=== PATIENT | female | born 1995 | race African-American/Black ===

== ENCOUNTER 2016-10-08 06:42 | Emergency (ER) | payer SELFPAY ==
[2016-10-08] MEDS ORDERED: Ibuprofen 200 MG TAB ONE (08:09)
[2016-10-08] MEDS ORDERED: traMADol HCl 50 MG TAB ONE (08:09)
--- NOTE | 2016-10-08 08:37 | RAD ---
RIGHT HAND THREE VIEWS: History: Trauma to hand. There is no signs of fracture or dislocation. IMPRESSION: Negative right hand. POS: OFF
--- NOTE | 2016-10-08 09:12 | ERRECORD ---
[facility] EMERGENCY RECORD HPI HAND (08:04 RW) CHIEF COMPLAINT: Patient presents for evaluation of injury, to the right hand. HISTORIAN: History provided by patient, crushed right thumb in car door this am. MECHANISM OF INJURY: Known mechanism, Mechanism of injury: Blunt trauma, by direct blow. LOCATION: Symptoms are localized, most severe in the first finger. SEVERITY: Maximum severity of symptoms mild, Currently symptoms are mild, Maximum severity of pain rated as 6/10, Current severity of pain rated as 6/10. TIME COURSE: Sudden onset of symptoms, just prior to arrival, There has been no change in the patient's symptoms over time. ASSOCIATED WITH: No associated symptoms. EXACERBATED BY: Patient's condition exacerbated by nothing. RELIEVED BY: Patient's condition relieved by nothing. ROS (08:05 RW) CONSTITUTIONAL: Negative constitutional review of systems. EYES: Negative eye review of systems. ENT: Negative ears, nose, throat review of systems. CARDIOVASCULAR: Negative cardiovascular review of systems. RESPIRATORY: Negative respiratory review of systems. GI: Negative gastrointestinal review of systems. GENITOURINARY FEMALE: Negative genitourinary review of systems. MUSCULOSKELETAL: Historian reports back pain. SKIN: Negative skin review of systems. NEUROLOGIC: Negative neurologic review of systems. ENDOCRINE: Negative endocrine review of systems. HEMO/LYMPHATIC: Normal hematologic/lymphatic system review. ALLERGIC/IMMUNOLOGIC: Normal allergy/immunologic system review. PSYCHIATRIC: Negative psychiatric review of systems. NOTES: All systems reviewed, negative except as described above. PAST MEDICAL HISTORY (07:29 MCBE) MEDICAL HISTORY: No past medical history, Tetanus immunization up to date. FEMALE SURGICAL HISTORY: Patient has no surgical history. PSYCHIATRIC HISTORY: No previous psychiatric history. SOCIAL HISTORY: Patient denies alcohol use, Patient denies drug use, Patient is a former tobacco user, smoked cigarettes. FAMILY HISTORY: Family history is non-contributory to this case. KNOWN ALLERGIES No Known Drug Allergies CURRENT MEDICATIONS (07:27 MCBE) &a-1R&a+25V*p+0X*q4115W*c202B*c15G*c2P*p-0X&a-25V&a+1R Name: Yamila Jennings : 1995 F21 MedRec: [id number] AcctNum: [id number] Prepared: ThuOct 08, 2016 09:15 by Interface Page 1 of 3 pMD [facility] EMERGENCY RECORD None VITAL SIGNS VITAL SIGNS: BP: 123/72, Pulse: 64, Resp: 18, Temp: 98.0 (Oral), Pain: 6, O2 sat: 96 on Room Air, Time: 10/08/2016 07:30. (07:30 MCBE) BP: 128/78, Pulse: 76, Resp: 16, Temp: 98.2 (Oral), Pain: 2, O2 sat: 97 on Room Air, Time: 10/08/2016 08:30. (08:30 MCBE) PHYSICAL EXAM (08:06 RW) CONSTITUTIONAL: Vital Signs Reviewed. HEAD: Head exam normal. EYES: Eye exam normal. ENT: ENT exam normal. NECK: Neck exam normal. RESPIRATORY CHEST: Respiratory and chest exam normal. CARDIOVASCULAR: Cardiovascular assessment normal. ABDOMEN FEMALE: Abdominal exam normal. BACK: Back exam normal. UPPER EXTREMITY: Upper extremity exam included findings of inspection abnormal, abrasions present, contusions present, dorsal aspect right thumb, Radial pulse normal, Ulnar pulse normal, Brachial pulse normal, capillary refill less than 2 seconds, distal motor intact, distal sensory intact. LOWER EXTREMITY: Lower extremity exam normal. NEURO: Neuro exam normal. SKIN: Skin exam normal. LYMPHATIC: Lymphatic exam normal. PSYCHIATRIC: Psychiatric exam normal. MEDICATION ADMINISTRATION SUMMARY Drug Name: Ultram, Dose Ordered: 2 tab(s), Route: Oral, Status: Given, Time: 08:13 10/08/2016, Drug Name: *Motrin, Dose Ordered: 1 tab(s), Route: Oral, Status: Given, Time: :10/08/2016, *Additional information available in notes, Detailed record available in Medication Service section. PROBLEM LIST No recorded problems DIAGNOSIS (08: RW) FINAL: PRIMARY: ABRASION UNSPECIFIED THUMB INITIAL, ADDITIONAL: contusion thumb. PRESCRIPTION (:27 RW) Ultram: TABLET : 50 mg : ORAL : Quantity: 2 Unit: tab(s) Route: ORAL Schedule: every 6 hours PRN Dispense: 20 Unit: tab(s) May substitute. Refills: No Refills . &a-1R&a+25V*p+0X*[id number]*c202B*c15G*c2P*p-0X&a-25V&a+1R Name: Yamila Jennings : 1995 F21 MedRec: [id number] AcctNum: [id number] Prepared: ThuOct 08, 2016 09:15 by Interface Page 2 of 3 pMD [facility] EMERGENCY RECORD NOTES: No Refills. DISPOSITION PATIENT: Disposition Type: Discharge, Disposition: *Discharge Home, Disposition Transport: Car, Condition: Improved. (08:28 RWAG) Patient left the department. (09:00 HENRRY) Hassan: MCTRINIDAD=ALEJO Fall, Carli RWAG=MD Candido, Compa &a-1R&a+25V*p+0X*[id number]*c202B*c15G*c2P*p-0X&a-25V&a+1R Name: Yamila Jennings : 1995 F21 MedRec: [id number] AcctNum: [id number] Prepared: ThuOct 08, 2016 09:15 by Interface Page 3 of 3 pMD MTDD
--- NOTE | 2016-10-08 09:13 | PICIS ---
[facility] EMERGENCY RECORD TRIAGE (07:27 MCBE) TRIAGE NOTES: patient cut right thumb on car door this am. (07:27 MCBE) PATIENT: NAME: Yamila Jennings, AGE: 21, GENDER: female, : Sun 1995, TIME OF GREET: ThuOct 08, 2016 06:43, PREFERRED LANGUAGE: Icelandic, ETHNICITY: Not or , ECODE BILLING MAP: [facility] ER, SSN: [id number], Zip Code: [address], KG WEIGHT: 71.21, PHONE: , , , PERSON ID: [id number]. (07:27 MCBE) COMPLAINT: CUT ON HAND. (07:27 MCBE) ADMISSION: URGENCY: 4 Non Urgent, ADMISSION SOURCE: Home, TRANSPORT: CAR, BED: ER -04. (07:27 MCBE) ASSESSMENT: Assessment: patient came to er with finger wrapped in towel. bleeding controlled at this time. (07:29 MCBE) IMMUNIZATIONS: Flu vaccine not up to date, Tetanus immunization up to date. (07:29 MCBE) SIRS SCORING: Heart Rate 55-109 (0), Temp range 96.8-101.1 (0), respiratory rate 12-24 (0), Mental Status altered: no (0), Infection or Suspected Infection: No. (07:29 MCBE) TRIAGE SCREENING: Patient denies suicidal ideation, Patient denies presence of domestic violence. (07:29 MCBE) PROVIDERS: TRIAGE NURSE: Carli Fall RN. (07:27 MCBE) PREVIOUS VISIT ALLERGIES: No Known Drug Allergies. (07:27 MCBE) No Known Drug Allergies. (07:29 MCBE) KNOWN ALLERGIES No Known Drug Allergies CURRENT MEDICATIONS (07:27 MCBE) None VITAL SIGNS VITAL SIGNS: BP: 123/72, Pulse: 64, Resp: 18, Temp: 98.0 (Oral), Pain: 6, O2 sat: 96 on Room Air, Time: 10/08/2016 07:30. (07:30 MCBE) BP: 128/78, Pulse: 76, Resp: 16, Temp: 98.2 (Oral), Pain: 2, O2 sat: 97 on Room Air, Time: 10/08/2016 08:30. (08:30 MCBE) NURSING ASSESSMENT: EXTREMITY UPPER (08:14 MCBE) CONSTITUTIONAL: Complex assessment performed, Patient arrives ambulatory, Gait steady, History obtained from patient, Patient appears comfortable, Patient cooperative, Patient alert, Oriented to person, place and time, Skin warm, Skin dry, Skin normal in color, Mucous membranes pink, Mucous membranes moist, Patient is well-groomed, Patient complains of CUT ON RIGHT THUMB. LEFT UPPER EXTREMITY: Left upper extremity assessment findings include capillary refill less than 2 seconds, Skin color normal to hand, Skin temperature to hand warm, Distal sensation intact, Muscle tone normal, Inspection findings include: No pressure ulcer to the shoulder, Inspection findings include no pressure ulcer to the elbow, &a-1R&a+25V*p+0X*e1080A*c202B*c15G*c2P*p-0X&a-25V&a+1R Name: Yamila Jennings : 1995 F21 MedRec: [id number] AcctNum: [id number] Prepared: ThuOct 08, 2016 09:15 by Interface Page [address] [facility] EMERGENCY RECORD Inspection findings include no pressure ulcer. RIGHT UPPER EXTREMITY: Right upper extremity assessment findings include capillary refill less than 2 seconds, Skin color normal to hand, Skin temperature to hand warm, Distal sensation intact, Muscle tone normal, Inspection findings include abrasion, to RIGHT THUMB, Inspection findings include: No pressure ulcer to the shoulder, Inspection findings include no pressure ulcer to the elbow, Inspection findings include no pressure ulcer. NURSING PROCEDURE: BEDSIDE RADIOLOGY (08:18 BE) PATIENT IDENTIFIER: Patient actively involved in identification process, Patient's identity verified by patient stating name, Patient's identity verified by patient stating date, Patient's identity verified by hospital ID bracelet. BEDSIDE RADIOLOGY: Portable x-ray performed, of the right hand. NURSING PROCEDURE: DISCHARGE NOTE (08:48 MCBE) DISCHARGE: Patient discharged to home, ambulating without assistance, friend driving, accompanied by friend, Summary of Care printed/ provided, Simple or moderate discharge teaching performed, by CARLI DHILLON, EXPLAINED DISCHARGE INSTRUCTIONS, Prescriptions given and instructions on side effects given, Name of prescription(s) given: TRAMADOL, Above person(s) verbalized understanding of discharge instructions and follow-up care, Patient treated and evaluated by physician, Notes: FRIEND SIGHNED PATIENT OUT. BELONGINGS: Belongings and valuables with patient upon arrival to the Emergency Department include:, Belongings and valuables with patient at time of discharge include:, jacket, pants, shirt, shoes, cellular phone, keys, purse, Belongings remain with patient, Valuables remain with patient. NURSING PROCEDURE: DRESSING (08:30 [facility]) PATIENT IDENTIFIER: Patient actively involved in identification process, Patient's identity verified by patient stating name, Patient's identity verified by patient stating date, Patient's identity verified by hospital ID bracelet. DRESSING: Dressing indicated to promote wound healing, Dressing indicated to prevent wound complications, Simple dressing, applied, No drainage present, no drainage from site, to RIGHT THUMB, Applied bandaid, Last tetanus shot received less than 5 years ago. ORDER DETAILS Order Name: XR Hand Rt 3 View STANDARD, Status: Active, Time: 07:58 10/08/2016, User: [facility], - Ordered for: MD Rey Richard, - Entered by: MD Rey Richard - ThuOct 08, 2016 07:58, - Quantity: 1. &a-1R&a+25V*p+0X*[id number]*c202B*c15G*c2P*p-0X&a-25V&a+1R Name: Yamila Jennings : 1995 F21 MedRec: [id number] AcctNum: [id number] Prepared: ThuOct 08, 2016 09:15 by Interface Page [address] [facility] EMERGENCY RECORD MEDICATION ADMINISTRATION SUMMARY Drug Name: Ultram, Dose Ordered: 2 tab(s), Route: Oral, Status: Given, Time: 08:13 10/08/2016, Drug Name: *Motrin, Dose Ordered: 1 tab(s), Route: Oral, Status: Given, Time: 08:13 10/08/2016, *Additional information available in notes, Detailed record available in Medication Service section. MEDICATION SERVICE (08: [facility]) Motrin: Order: Motrin (ibuprofen) - Dose: 1 tab(s) : Oral Schedule: Now Notes: 600mg Ordered by: Compa Rey MD Entered by: Compa Rey MD ThuOct 08, 2016 07:59 , Acknowledged by: Carli Fall RN ThuOct 08, 2016 08:07 Documented as given by: Carli Fall RN ThuOct 08, 2016 08:13 Patient, Medication, Dose, Route and Time verified prior to administration. Amount given: 600MG, Site: Medication administered P.O., Patient appears Awake and alert- acceptable, Correct patient, time, route, dose and medication confirmed prior to administration, Patient advised of actions and side-effects prior to administration, Allergies confirmed and medications reviewed prior to administration, Patient in position of comfort, Side rails up, Cart in lowest position, Call light in reach. Ultram: Order: Ultram (tramadol HCl) - Dose: 2 tab(s) : Oral Schedule: Now Ordered by: Compa Rey MD Entered by: Cmopa Rey MD ThuOct 08, 2016 07:59 , Acknowledged by: Carli Fall RN ThuOct 08, 2016 08:08 Documented as given by: Carli Fall RN ThuOct 08, 2016 08:13 Patient, Medication, Dose, Route and Time verified prior to administration. Amount given: 2 TABS, Site: Medication administered P.O., Patient appears Awake and alert- acceptable, Correct patient, time, route, dose and medication confirmed prior to administration, Patient advised of actions and side-effects prior to administration, Allergies confirmed and medications reviewed prior to administration, Patient in position of comfort, Side rails up, Cart in lowest position, Family at bedside, Call light in reach. HPI HAND (08:04 [facility]) CHIEF COMPLAINT: Patient presents for evaluation of injury, to the right hand. HISTORIAN: History provided by patient, crushed right thumb in car door this am. MECHANISM OF INJURY: Known mechanism, &a-1R&a+25V*p+0X*i5010O*c202B*c15G*c2P*p-0X&a-25V&a+1R Name: Yamila Jennings : 1995 F21 MedRec: [id number] AcctNum: [id number] Prepared: ThuOct 08, 2016 09:15 by Interface Page 3 of 6 pMD [facility] EMERGENCY RECORD Mechanism of injury: Blunt trauma, by direct blow. LOCATION: Symptoms are localized, most severe in the first finger. SEVERITY: Maximum severity of symptoms mild, Currently symptoms are mild, Maximum severity of pain rated as 6/10, Current severity of pain rated as 6/10. TIME COURSE: Sudden onset of symptoms, just prior to arrival, There has been no change in the patient's symptoms over time. ASSOCIATED WITH: No associated symptoms. EXACERBATED BY: Patient's condition exacerbated by nothing. RELIEVED BY: Patient's condition relieved by nothing. ROS (08:05 [facility]) CONSTITUTIONAL: Negative constitutional review of systems. EYES: Negative eye review of systems. ENT: Negative ears, nose, throat review of systems. CARDIOVASCULAR: Negative cardiovascular review of systems. RESPIRATORY: Negative respiratory review of systems. GI: Negative gastrointestinal review of systems. GENITOURINARY FEMALE: Negative genitourinary review of systems. MUSCULOSKELETAL: Historian reports back pain. SKIN: Negative skin review of systems. NEUROLOGIC: Negative neurologic review of systems. ENDOCRINE: Negative endocrine review of systems. HEMO/LYMPHATIC: Normal hematologic/lymphatic system review. ALLERGIC/IMMUNOLOGIC: Normal allergy/immunologic system review. PSYCHIATRIC: Negative psychiatric review of systems. NOTES: All systems reviewed, negative except as described above. PAST MEDICAL HISTORY (07:29 [facility]) MEDICAL HISTORY: No past medical history, Tetanus immunization up to date. FEMALE SURGICAL HISTORY: Patient has no surgical history. PSYCHIATRIC HISTORY: No previous psychiatric history. SOCIAL HISTORY: Patient denies alcohol use, Patient denies drug use, Patient is a former tobacco user, smoked cigarettes. FAMILY HISTORY: Family history is non-contributory to this case. PHYSICAL EXAM (08:06 [facility]) CONSTITUTIONAL: Vital Signs Reviewed. HEAD: Head exam normal. EYES: Eye exam normal. ENT: ENT exam normal. NECK: Neck exam normal. RESPIRATORY CHEST: Respiratory and chest exam normal. CARDIOVASCULAR: Cardiovascular assessment normal. ABDOMEN FEMALE: Abdominal exam normal. &a-1R&a+25V*p+0X*l1496Z*c202B*c15G*c2P*p-0X&a-25V&a+1R Name: Yamila Jennings : 1995 F21 MedRec: [id number] AcctNum: [id number] Prepared: ThuOct 08, 2016 09:15 by Interface Page [address] [facility] EMERGENCY RECORD BACK: Back exam normal. UPPER EXTREMITY: Upper extremity exam included findings of inspection abnormal, abrasions present, contusions present, dorsal aspect right thumb, Radial pulse normal, Ulnar pulse normal, Brachial pulse normal, capillary refill less than 2 seconds, distal motor intact, distal sensory intact. LOWER EXTREMITY: Lower extremity exam normal. NEURO: Neuro exam normal. SKIN: Skin exam normal. LYMPHATIC: Lymphatic exam normal. PSYCHIATRIC: Psychiatric exam normal. EVENTS TRANSFER: Triage to Emergency Emergency Room -04. (ThuOct 08, 2016 07:27 MCBE) Removed from Emergency Emergency Room -04. (09:00 MCBE) PROBLEM LIST No recorded problems DIAGNOSIS (08:28 RWAG) FINAL: PRIMARY: ABRASION UNSPECIFIED THUMB INITIAL, ADDITIONAL: contusion thumb. DISPOSITION PATIENT: Disposition Type: Discharge, Disposition: *Discharge Home, Disposition Transport: Car, Condition: Improved. (08:28 RWAG) Patient left the department. (09:00 MCBE) INSTRUCTION (08:28 RWAG) DISCHARGE: CRUSH INJURY, HAND/FINGER. FOLLOWUP: Follow up with Primary Care Physician as needed. SPECIAL: Follow-up with your PCP. PRESCRIPTION (08:27 RWAG) Ultram: TABLET : 50 mg : ORAL : Quantity: 2 Unit: tab(s) Route: ORAL Schedule: every 6 hours PRN Dispense: 20 Unit: tab(s) May substitute. Refills: No Refills . NOTES: No Refills. IMAGING *DISCHARGE INSTRUCTIONS RECEIPT: Image captured from scanner. (08:57 MCBE) *SUPPLY CHARGE SHEET: Image captured from scanner. (08:58 MCBE) ADMIN (09:09 RWAG) DIGITAL SIGNATURE: MD Rey Richard. Hassan: &a-1R&a+25V*p+0X*p9243V*c202B*c15G*c2P*p-0X&a-25V&a+1R Name: Yamila Jennings : 1995 F21 MedRec: [id number] AcctNum: [id number] Prepared: ThuOct 08, 2016 09:15 by Interface Page [address] [facility] EMERGENCY RECORD MCBE=ALEJO Fall, Carli RWAG=MD Candido, Compa &a-1R&a+25V*p+0X*[id number]*c202B*c15G*c2P*p-0X&a-25V&a+1R Name: Yamila Jennings : 1995 F21 MedRec: [id number] AcctNum: [id number] Prepared: ThuOct 08, 2016 09:15 by Interface Page [address] [facility] MEDICATION RECONCILIATION You were seen in the Emergency Department on: ThuOct 08, 2016 KNOWN ALLERGIES No Known Drug Allergies MEDICATIONS GIVEN WHILE IN THE EMERGENCY DEPARTMENT Ultram (tramadol HCl) - Dose: 2 tab(s) : Oral Motrin (ibuprofen) - Dose: 1 tab(s) : Oral HOME MEDICATIONS None Notes from the emergency department Reviewed with patient PRESCRIPTIONS (1) &a-1R&a+25V*p+0X*m6297S*c202B*c15G*c2P*p-0X&a-25V&a+1R Name: Yamila Jennings : 1995 F21 MedRec: [id number] AcctNum: [id number] Prepared: ThuOct 08, 2016 09:15 by Interface pMD JERE
== END 2016-10-08 08:47 | disposition home or self-care (01) ==
LOC: NAV ERS 06:42
DX: S60.011A Contusion of right thumb without damage to nail, initial encounter (principal); Z87.891 Personal history of nicotine dependence; W23.0XXA Caught, crushed, jammed, or pinched between moving objects, initial encounter
CPT/HCPCS: 99283

== ENCOUNTER 2016-10-28 03:56 | Emergency (ER) | payer SELFPAY ==
[2016-10-28] MEDS ORDERED: AMOXicillin 250 MG CAP ONE (04:21)
== END 2016-10-28 04:45 | disposition home or self-care (01) ==
LOC: NAV ERS 03:56
DX: K08.89 Other specified disorders of teeth and supporting structures (principal); Z87.891 Personal history of nicotine dependence
CPT/HCPCS: 99282

== ENCOUNTER 2016-10-28 09:03 | Emergency (ER) | payer SELFPAY ==
[2016-10-28] MEDS ORDERED: Ketorolac Tromethamine 60 MG/2 ML VIAL ONE (09:46)
== END 2016-10-28 09:56 | disposition home or self-care (01) ==
LOC: NAV ERS 09:03
DX: K08.89 Other specified disorders of teeth and supporting structures (principal); Z87.891 Personal history of nicotine dependence
CPT/HCPCS: 96372; J1885

== ENCOUNTER 2017-05-17 11:51 | Emergency (ER) | payer OTHER ==
[2017-05-17] MEDS ORDERED: Sodium Chloride 0.9% 1,000 ML ONE (12:38)
[2017-05-17 12:42] LABS: Bilirubin Negative (Negative); Blood, Urine Small (Negative); Clarity SL HAZY (Clear); Glucose, Urine (Dipstick) Negative (Negative); Leukocyte Negative (Negative); Nitrite Negative (Negative); Protein, Urine (Dipstick) Negative (Neg-Trace)
[2017-05-17 12:55] LABS: Bacteria/HPF 2+ HPF (None Seen); Pregnancy Test - Urine (BHCG) Negative (Negative); Pregu Control Background? CLEAR/WHITE (CLR/WHITE); Pregu Control Bar Appear? YES (CONTROL BAR); RBC/HPF 0-3 HPF (0-3); WBC/HPF 0-3 HPF (0-3)
[2017-05-17 13:08] LABS: ALT (SGPT) 14 U/L (8-55); AST (SGOT) 13 U/L (5-34); Albumin 3.6 g/dL (3.5-5.0); Alkaline Phosphatase 71 U/L (40-150); Anion Gap 10 mmol/L (10-20); BUN (Urea Nitrogen) 12 mg/dL (7.0-18.7); Bilirubin, Total 0.3 mg/dL (0.2-1.2); Calc. Creatinine Clearance 0 mL/min (70-130); Calcium 8.8 mg/dL (7.8-10.44); Carbon Dioxide 26 mmol/L (22-29); Chloride 109 mmol/L (98-107); Estimated GFR-MDRD Greater than 90; Globulin 2.8 g/dL (2.4-3.5); Glucose 80 mg/dL (70-105); Lipase 24 U/L (8-78); Potassium 4.1 mmol/L (3.5-5.1); Protein, Total 6.4 g/dL (6.0-8.3); Sodium 141 mmol/L (136-145)
[2017-05-17 13:10] LABS: #Basophils 0.2 thou/uL (0.0-0.2); #Eosinphils 0.1 thou/uL (0.0-0.7); #Lymphocytes 3.3 thou/uL (1.20-3.40); #Monocytes 0.6 thou/uL (0.11-0.59); #Neutrophils 3.5 thou/uL (1.40-6.50); %Eosinophils 1.8 % (0.0-10.0); %Lymphocytes 43.2 % (21.0-51.0); %Monocytes 7.4 % (0.0-10.0); %Neutrophils 45.6 % (42.0-75.0); Hemoglobin 10.4 g/dL (12.0-16.0); Mean Corpuscular HGB CONC 30.4 g/dL (32.0-36.0); Mean Corpuscular Hemoglobin 20.6 pg (27.0-31.0); Mean Corpuscular Volume 67.9 fl (81.0-99.0); Mean Platelet Volume 7.2 fL (7.4-10.4); Platelet Count 198 thou/uL (130-400); RBC Distribution Width 13.6 % (11.5-14.5); Red Blood Cell (RBC) Count 5.03 mill/uL (4.20-5.40); White Blood Cell (WBC) Count 7.7 thou/uL (4.8-10.8)
== END 2017-05-17 13:30 | disposition home or self-care (01) ==
LOC: NAV ERS 11:51
DX: K52.1 Toxic gastroenteritis and colitis (principal); T36.3X5A Adverse effect of macrolides, initial encounter; F17.210 Nicotine dependence, cigarettes, uncomplicated
CPT/HCPCS: 80053; 81003; 81015; 81025; 83690; 85025; 96360; J7050

== ENCOUNTER 2018-02-16 13:01 | Emergency (ER) | payer SELFPAY ==
[2018-02-16] MEDS ORDERED: Dicyclomine 20 MG TAB ONE (13:18)
[2018-02-16] MEDS ORDERED: Ondansetron ODT 4 MG TAB ONE (13:18)
[2018-02-16 13:33] LABS: Pregnancy Test - Urine (BHCG) POSITIVE (Negative)
[2018-02-16 13:34] LABS: Pregu Control Background? CLEAR/WHITE (CLR/WHITE); Pregu Control Bar Appear? YES (CONTROL BAR)
== END 2018-02-16 13:43 | disposition home or self-care (01) ==
LOC: NAV ERS 13:01
DX: O99.611 Diseases of the digestive system complicating pregnancy, first trimester (principal); K52.9 Noninfective gastroenteritis and colitis, unspecified; O99.331 Smoking (tobacco) complicating pregnancy, first trimester; F17.210 Nicotine dependence, cigarettes, uncomplicated; Z71.6 Tobacco abuse counseling
CPT/HCPCS: 81025; 99284; Q0162

== ENCOUNTER 2018-05-19 15:49 | Emergency (ER) | payer MEDICAID, OTHER | END 2018-05-19 16:22 | disposition home or self-care (01) | LOC: NAV ERS 15:49 | DX: O21.9 Vomiting of pregnancy, unspecified (principal); Z87.891 Personal history of nicotine dependence; Z3A.18 18 weeks gestation of pregnancy | CPT/HCPCS: 99283 ==

== ENCOUNTER 2018-06-04 21:09 | Emergency (ER) | payer OTHER | END 2018-06-04 22:13 | disposition home or self-care (01) | LOC: NAV ERS 21:09 | DX: O99.89 Other specified diseases and conditions complicating pregnancy, childbirth and the puerperium (principal); Z87.891 Personal history of nicotine dependence; Z79.899 Other long term (current) drug therapy; Z3A.20 20 weeks gestation of pregnancy | CPT/HCPCS: 99283 ==

== ENCOUNTER 2020-08-06 14:28 | Emergency (ER) | payer OTHER, SELFPAY ==
[2020-08-06 15:30] LABS: Bilirubin Negative (Negative); Blood, Urine Negative (Negative); Clarity Clear (Clear); Glucose, Urine (Dipstick) Negative (Negative); Ketone, Urine Negative (Negative); Leukocyte Negative (Negative); Nitrite Negative (Negative); Protein, Urine (Dipstick) Negative (Neg-Trace); Urobilinogen 0.2 mg/dL (Less than 2)
[2020-08-06 15:32] LABS: #Basophils 0.1 thou/uL (0.0-0.2); #Eosinphils 0.1 thou/uL (0.0-0.7); #Lymphocytes 3.3 thou/uL (1.20-3.40); #Monocytes 0.6 thou/uL (0.11-0.59); #Neutrophils 4.9 thou/uL (1.40-6.50); %Basophils 1.2 % (0.0-1.0); %Eosinophils 1.2 % (0.0-10.0); %Lymphocytes 37.1 % (21.0-51.0); %Monocytes 6.4 % (0.0-10.0); %Neutrophils 54.2 % (42.0-75.0); Hemoglobin 10.9 g/dL (12.0-16.0); Mean Corpuscular HGB CONC 29.7 g/dL (32.0-36.0); Mean Corpuscular Hemoglobin 20.7 pg (27.0-31.0); Mean Corpuscular Volume 69.9 fL (78.0-98.0); Mean Platelet Volume 6.6 fL (7.4-10.4); Platelet Count 235 thou/uL (130-400); RBC Distribution Width 13.3 % (11.5-14.5); Red Blood Cell (RBC) Count 5.23 mill/uL (4.20-5.40)
[2020-08-06 15:43] LABS: ALT (SGPT) 16 U/L (8-55); AST (SGOT) 13 U/L (5-34); Albumin 3.7 g/dL (3.5-5.0); Alkaline Phosphatase 68 U/L (40-110); Anion Gap 12 mmol/L (10-20); BUN (Urea Nitrogen) 13 mg/dL (7.0-18.7); Bilirubin, Total 0.2 mg/dL (0.2-1.2); Calc. Creatinine Clearance 0 mL/min (70-130); Calcium 8.4 mg/dL (7.8-10.44); Carbon Dioxide 24 mmol/L (22-29); Chloride 104 mmol/L (98-107); Globulin 2.8 g/dL (2.4-3.5); Glucose 93 mg/dL (70-105); Potassium 3.6 mmol/L (3.5-5.1); Protein, Total 6.5 g/dL (6.0-8.3); Sodium 136 mmol/L (136-145)
== END 2020-08-06 17:26 | disposition short-term general hospital (02) ==
LOC: NAV ERS 14:28
DX: O99.891 Other specified diseases and conditions complicating pregnancy (principal); R10.32 Left lower quadrant pain; O99.331 Smoking (tobacco) complicating pregnancy, first trimester; F17.200 Nicotine dependence, unspecified, uncomplicated; Z3A.01 Less than 8 weeks gestation of pregnancy; Z79.899 Other long term (current) drug therapy
CPT/HCPCS: 80053; 81003; 84702; 85025; 99284

== ENCOUNTER 2022-05-04 02:10 | Emergency (ER) | payer OTHER, SELFPAY ==
[2022-05-04] MEDS ORDERED: Sulfameth/Trimethoprim DS 800-160mg TAB ONE (02:58)
[2022-05-04] MEDS ORDERED: Ketorolac Tromethamine 30 MG/ML VIAL ONE (02:58)
[2022-05-04] MEDS ORDERED: Cephalexin 250 MG CAP ONE (02:58)
== END 2022-05-04 03:28 | disposition home or self-care (01) ==
LOC: NAV ERS 02:10
DX: L03.012 Cellulitis of left finger (principal)
CPT/HCPCS: 96372; 99283; J1885

== ENCOUNTER 2022-05-06 12:15 | Emergency (ER) | payer MEDICAID, OTHER, SELFPAY ==
[2022-05-06] MEDS ORDERED: Lidocaine 1% (PF) 30 ML VIAL ONE (13:01)
[2022-05-06] MEDS ORDERED: Ibuprofen 800 MG TAB ONE (13:17)
== END 2022-05-06 13:25 | disposition home or self-care (01) ==
LOC: NAV ERS 12:15
DX: L03.012 Cellulitis of left finger (principal); L02.512 Cutaneous abscess of left hand; F17.210 Nicotine dependence, cigarettes, uncomplicated
CPT/HCPCS: 10060; J2001